=== PATIENT | male | born 1940 | race African-American/Black ===

== ENCOUNTER → 2016-09-18 | Outpatient (CLI) | payer MEDICARE | LOC: RAD 10:03 | PROVIDERS: ATTEND Internal Medicine | DX: N18.3 Chronic kidney disease, stage 3 (moderate) (principal) | CPT/HCPCS: 76770 ==

== ENCOUNTER → 2017-04-13 | Outpatient (CLI) | payer MEDICARE ==
--- NOTE | 2017-04-13 15:03 | RADIOLOGY REPORT (SQ) ---
EXAM DESCRIPTION: KNEE LEFT 2 VIEWS COMPLETED DATE/TIME: 04/13/2017 1:47 pm REASON FOR STUDY: PAIN IN LEFT KNEE M25.562 PAIN IN LEFT KNEE COMPARISON: None. NUMBER OF VIEWS: Two views TECHNIQUE: AP and lateral radiographic images acquired of the left knee. LIMITATIONS: None. FINDINGS: MINERALIZATION: Normal. BONES: No acute fracture or dislocation. No worrisome bone lesions. JOINT: Articular loose bodies. SOFT TISSUES: No soft tissue swelling. Calcific densities are identified in the soft tissues posteri or to the knee articulation which could represent synovial osteochondromatosis or intra-articular loo se bodies. Other etiologies cannot be excluded. OTHER: No other significant finding. IMPRESSION: NO RADIOGRAPHIC EVIDENCE OF ACUTE INJURY. Soft tissue calcifications projected posterio r to the knee articulation as noted above which could represent synovial osteochondromatosis or intra -articular loose bodies. Other etiologies cannot be excluded. If further workup is deemed clinicall y warranted I would recommend MRI. Other findings as noted above TECHNICAL DOCUMENTATION: JOB ID: [id number] [employer]- All Rights Reserved
== END ==
LOC: OD 13:35
PROVIDERS: ATTEND Internal Medicine
DX: M25.562 Pain in left knee (principal)